=== PATIENT | male | born 1990 | race Caucasian/White ===

== ENCOUNTER 2021-02-26 20:45 | Emergency (ER) | payer OTHER ==
[2021-02-27 03:12] LABS: BASOPHIL 0.2 % (0-2); EOSINOPHIL 0 % (0-5); HCT 42.5 % (42.0-52.0); HGB 14.9 g/dl (13.2-18.0); LYMPHOCYTE 24.8 % (15-48); MCH 32.1 pg (25.0-31.0); MCHC 35.1 g/dL (32.0-36.0); MCV 91.6 fL (78.0-100.0); MONOCYTE 6.4 % (0-12); MPV 10.1 fL (6.0-9.5); NRBC 0; PLT 114 K/uL (150-400); RBC 4.64 M/uL (4.70-6.00); RDW 12.6 % (11.5-14.0); WBC 4.4 K/uL (4.0-10.5)
[2021-02-27 03:14] LABS: NEUTROPHIL 67.2 % (41-80)
[2021-02-27 03:28] LABS: ALBUMIN 3.3 g/dL (3.4-5.0); BILIRUBIN - TOTAL 0.8 mg/dL (0.2-1.0); BUN/CREAT RATIO (CALC) 14.1 RATIO; CREATININE 0.92 mg/dL (0.67-1.17); GLOBULIN (CALCULATION) 3.6 g/dL; POTASSIUM 3.6 mmol/L (3.5-5.1); TOTAL PROTEIN 6.9 g/dL (6.4-8.2)
[2021-02-27 03:57] LABS: INFLUENZA A NAA NEGATIVE (NEGATIVE)
[2021-02-27 04:07] LABS: CORONAVIRUS 2019 SARS-COV-2 POSITIVE (NEGATIVE)
== END 2021-02-27 08:00 | disposition home or self-care (01) ==
LOC: FER 20:45
PROVIDERS: Emergency Medicine
DX: U07.1 COVID-19 (principal)
CPT/HCPCS: 36415; 71045; 71275; 80053; 84484; 85025; 85379; 93005; J2405; J7030; Q9967; U0002